=== PATIENT | female | born 1975 | race Caucasian/White ===

== ENCOUNTER 2016-04-06 07:48 | Emergency (ER) | payer BC ==
[2016-04-06 08:39] VITALS: BP 141/96
--- NOTE | 2016-04-06 08:44 | UC ---
Ear Complaint HPI - HPI Summary HPI Summary: 40 F presents with sinus congestion, dry cough, both ear pain starting on Wednesday. Sinus pressure has got worst. Admits to runny nose. Ear pain starting left ear then moved right going up chills in [place] today. Denies any fever, chest pain, or SOB PMH of HTN, goiter, skin CA, carpel tunnel, - History of Current Complaint Chief Complaint: UC Stated Complaint: EAR PAIN SINUS CONGESTION Time Seen by Provider: 04/06/16 08:39 Hx Last Menstrual Period: 03/12/16 - Allergies/Home Medications Allergies/Adverse Reactions: Allergies Allergy/AdvReac Type Severity Reaction Status Date / Time Lisinopril Allergy Dizziness Verified 04/06/16 08:31 Naproxen Allergy Dizziness Verified 04/06/16 08:31 Sulfa Drugs Allergy Unknown Verified 04/06/12 14:37 Reaction Details Home Medications: Home Medications Cholecalciferol [Vitamin D] 1,000 unit PO DAILY 04/06/16 [History Confirmed ] Fexofenadine (NF) [Iraida (NF)] 1 tab PO DAILY PRN 04/06/16 [History Confirmed 04/06/16] Valsartan TAB* [Diovan TAB*] 40 mg PO DAILY 04/06/16 [History Confirmed 04/06/16 ] PMH/Surg Hx/FS Hx/Imm Hx Endocrine History Of: Reports: Thyroid Disease Denies: Diabetes, Hypothyroidism - she is post - last weight - 10/29/2010 - [place]. Cardiovascular History Of: Reports: Hypertension Denies: Pacemaker/ICD - Surgical History Surgical History: Yes Surgery Procedure, Year, and Place: carpel tunnel left , skin surgeries, wisdom teeth - Family History Known Family History: Negative: Cardiac Disease - Social History Alcohol Use: Daily Alcohol Amount: 1 glass wine Substance Use Type: None Smoking Status (MU): Former Smoker Type: Cigarettes Amount Used/How Often: 2003 Have You Smoked in the Last Year: No Review of Systems Constitutional: Negative Eyes: Negative ENT: Ear Ache, Other - sinus pressure Respiratory: Negative Cardiovascular: Negative All Other Systems Reviewed And Are Negative: Yes Physical Exam Triage Information Reviewed: Yes Appearance: Well-Appearing Vital Signs: Initial Vital Signs Temp 98.8 F 04/06/16 08:33 Pulse 65 01/30/17 08:33 Resp 16 04/06/16 08:33 BP 141/96 04/06/16 08:33 Pulse Ox 100 04/06/16 08:33 Vital Signs Reviewed: Yes Eyes: Positive: Conjunctiva Clear ENT: Positive: Normal ENT inspection, Pharynx normal, TMs normal - fluid behind ears. Negative: TM bulging, TM red Neck: Positive: Supple, Nontender, No Lymphadenopathy Respiratory: Positive: Lungs clear, Normal breath sounds Cardiovascular: Positive: RRR Ear Complaint Course/Dx - Course Course Of Treatment: 40 F presents with bilateral ear pain and sinus pressure for 3 days, fluid behind ears and nasal discharge presents so likely viral sinusitis, no chest pain or SOB and has been able to excerise as normal so do not suspect cardiac disease, will give flonase, patient agrees with plan - Differential Dx/Diagnosis Differential Diagnosis/HQI/PQRI: Otitis Externa, Otitis Media, Other - sinusitis Provider Diagnoses: viral sinusitis Discharge - Discharge Plan Condition: Stable Disposition: HOME Prescriptions: Fluticasone NASAL SPRAY 50MCG* [Flonase NASAL SPRAY 50MCG*] 2 spray BOTH NARES DAILY #1 btl Patient Education Materials: Rhinosinusitis (ED) Referrals: Fuentes Laird MD [Medical Doctor] - Additional Instructions: Use saline spray/neti pot in nose as much as needed, make sure boil water first Use humidifier in room or can use warm water in bowls Use intranasal steroid one spray each nostril twice a day Take Tylenol or ibuprofen for pain every 6 hours Follow up with primary in 5 days if no improvement Return to ED/UC if develop any new or worsening symptoms
== END 2016-04-06 08:57 | disposition home or self-care (01) ==
LOC: UCEAST 07:48
DX: J32.8 Other chronic sinusitis (principal); H92.03 Otalgia, bilateral; Z88.6 Allergy status to analgesic agent; Z88.2 Allergy status to sulfonamides; Z88.8 Allergy status to other drugs, medicaments and biological substances; Z87.891 Personal history of nicotine dependence
CPT/HCPCS: 99212; G0463

== ENCOUNTER 2016-07-07 16:35 | Emergency (ER) | payer SELFPAY ==
[2016-07-07] MEDS ORDERED: Ibuprofen TAB* 600 MG PO ONE (18:48)
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
[2016-07-07 20:06] VITALS: BP 138/87
== END 2016-07-07 20:05 | disposition home or self-care (01) ==
LOC: ED 16:35
DX: M25.512 Pain in left shoulder (principal); M25.552 Pain in left hip; V49.40XA Driver injured in collision with unspecified motor vehicles in traffic accident, initial encounter; Y92.410 Unspecified street and highway as the place of occurrence of the external cause; Z87.891 Personal history of nicotine dependence
CPT/HCPCS: 99282; A9270-GY

== ENCOUNTER 2017-12-18 17:19 | Emergency (ER) | payer BC ==
[2017-12-18 17:33] VITALS: BP 133/94
--- NOTE | 2017-12-18 18:01 | RAD ---
Indication: Left great toe injury 3 views of left great toe demonstrates no fracture. No other bone or joint abnormalities identified. IMPRESSION: No fracture of the left great toe is noted.
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
== END 2017-12-18 19:00 | disposition home or self-care (01) ==
LOC: UCEAST 17:19
DX: S90.112A Contusion of left great toe without damage to nail, initial encounter (principal); W20.8XXA Other cause of strike by thrown, projected or falling object, initial encounter; Y92.9 Unspecified place or not applicable; I10 Essential (primary) hypertension; Z87.891 Personal history of nicotine dependence; Z88.8 Allergy status to other drugs, medicaments and biological substances; Z88.2 Allergy status to sulfonamides
CPT/HCPCS: 99211; G0463